=== PATIENT | male | born 1980 | race Caucasian/White ===

== ENCOUNTER 2020-05-30 13:39 | Emergency (ER) | payer MEDICAID ==
[~2020-05-30] VITALS: Ht 180.3 cm; Wt 95.3 kg
[2020-05-30] MEDS ORDERED: AZIT250T PO (13:57)
[2020-05-30] MEDS ORDERED: ACET-2154 PO (13:57)
[2020-05-30] MEDS ORDERED: DEXT15SY3 PO (13:57)
[2020-05-30] MEDS ORDERED: ALBU6.7H9 INH (13:57)
[2020-05-30] MEDS ORDERED: AZITHROMYCIN 250 MG TABLET PO ONE (14:15)
[2020-05-30] MEDS ORDERED: ALBUTEROL SULFATE 2.5 MG/3 ML NEBU NEB ONE (14:15)
[2020-05-30] MEDS ORDERED: IPRATROPIUM BROMIDE 0.5 MG/2.5 ML NEBU NEB ONE (14:15)
[2020-05-30] MEDS ORDERED: predniSONE 20 MG TABLET PO ONE (14:15)
[2020-05-30] MEDS ORDERED: predniSONE 20 MG TABLET ONE (14:20)
[2020-05-30] MEDS ORDERED: AZITHROMYCIN 250 MG TABLET ONE (14:20)
[2020-05-30] MEDS ORDERED: IPRATROPIUM BROMIDE 0.5 MG/2.5 ML NEBU ONE (14:27)
[2020-05-30] MEDS ORDERED: ALBUTEROL SULFATE 2.5 MG/3 ML NEBU ONE (14:27)
--- NOTE | 2020-05-30 14:48 | NUR ---
COVID 19 ANTIGEN NEGATIVE PER LAB
--- NOTE | 2020-05-30 14:58 | NUR ---
Patient said that he feels much better. Patient discharged to home in stable condition with brisk steady gait. Written and verbal after care instructions given. Patient verbalizes understanding & compliance of instructions. Stressed follow up with primary doctor or return to ER for worsening s/s.
== END 2020-05-30 15:07 | disposition home or self-care (01) ==
LOC: ER 13:39
DX: R05 Cough (principal); R06.2 Wheezing; Z20.822 Contact with and (suspected) exposure to COVID-19; R53.83 Other fatigue
CPT/HCPCS: 71045; 87426; 94640; 99284; J7512; A4663; J3590; Q0144